=== PATIENT | female | born 1935 | race Caucasian/White ===

== ENCOUNTER 2016-08-16 15:24 | Emergency (ER) | payer MEDICARE, OTHER ==
[~2016-08-16 15:24] MED LIST: ACET500CAP PO; ALLEGRA180 PO; APRES10B PO; ASA5GR PO; ASAB PO; ASAEC PO; AVALIDE1 TA2 PO; BETAPACE80 PO; BUM5 PO; CARDIZEM LA360 MG PO; CARTIA XT180 MG/24 PO; CLOBETASOL0.051 EX; CRESTOR5 MG PO; DEXILANT PO; ELIQUIS 5 MG TAB5 MG PO; ESTRACE1 MG PO; ESTRODIAL PO; FAMVIR 500 MG500 MG PO; FERROUS SULF325 M1 PO; HCTZ25B PO; HYDROCHLOROT12.5 MG PO; L20 PO; LEVOTHYROXIN50 MCG PO; LEVOTHYROXIN75 MCG PO; MAXIMUM D3 PO; MCZ125 PO; METANX PO; MICRO-K10 MEQ PO; MULTIPLE VIT PO; MYLANTA PO; MYLUD PO; NEXIUM20 M1 PO; NEXIUM40 PO; P10 PO; P5 PO; PATANOL OPH; PLAVIX PO; PRADAXA150 MG PO; PRILO PO; PRIN5 PO; RANITIDINE300 MG PO; RYTHMOL150 MG PO; SINGULAIR1 PO; STOMACH PILL PO; T PO; TAMBO50 PO; TOPXL25 PO; TRIAMCINOLON0.12 EX; TRIAMCINOLONE C80 GM TOP; TRIAMCINOLONE454 GM TOP; TRILIPIX135 MG PO; ULTRAM50 PO; V5 PO; ZANAFLEX 4 MG TA4 MG PO; ZEGERID1 CA1 PO; [UNRECOGNIZED DRUG - OTHER] PO; [UNRECOGNIZED DRUG - REMARK]
[2016-08-16 16:00] LABS: BASOPHILS 0.3 %; BASOPHILS ABSOLUTE 0.03 10/3/uL (0.0-0.16); EOSINOPHILS 0.2 %; EOSINOPHILS ABSOLUTE 0.02 10/3/uL (0.0-0.53); ER CBC TAT 0 Hrs 13 Mins; HEMOGLOBIN 11.7 g/dL (12.0-16.0); IMMATURE GRANULOCYTES 0.4 %; IMMATURE GRANULOCYTES ABSOLUTE 0.04 10/3/uL (0.0-0.11); LYMPHOCYTES 16.8 %; LYMPHOCYTES ABSOLUTE 1.77 10/3/uL (0.67-4.30); MEAN CORPUS HGB CONC 32.5 g/dL (32.0-36.0); MEAN CORPUSCULAR HEMOGLOB 28.3 pg (26.0-34.0); MEAN PLATELET VOLUME 9.8 fL (9.2-13.0); MONOCYTES 8.8 %; MONOCYTES ABSOLUTE 0.93 10/3/uL (0.21-1.20); NEUTROPHILS 73.5 %; NEUTROPHILS ABSOLUTE 7.73 10/3/uL (2.02-8.40); PLATELET COUNT 234 10/3/uL (150-400); RBC DISTRIBUTION WIDTH 16.6 % (12.0-16.0); RED CELL COUNT 4.13 10/6/uL (4.0-5.6); WHITE BLOOD CELLS 10.5 10/3/uL (4.5-10.5)
[2016-08-16 16:01] LABS: MANUAL DIFF NO %; MEAN CORPUSCULAR VOLUME 87.2 fL (80-100)
[2016-08-16 16:04] LABS: INTERNATIONAL NORMAL RATI 1.3 UNITS (-); PARTIAL THROMBO TIME 31.9 SEC (22.5-37.2); PROTIME (NOT ORD) 16.3 SEC (12.0-14.5)
[2016-08-16 16:11] LABS: BUN (BLOOD UREA NITROGEN) 18 MG/DL (6-23); CALCIUM, SERUM 9.1 MG/DL (8.5-10.4); CHEST PAIN PROFILE TAT 0 Hrs 24 Mins; CHLORIDE, SERUM 100 MMOL/L (96-112); CO2 (CARBON DIOXIDE) 26 MMOL/L (24-34); CREATININE 1.01 MG/DL (0.55-1.02); GFR AFRICAN AMERICAN 61 ML/MIN (>=60); GFR NON AFRICAN AMERICAN 53 ML/MIN (>=60); GLUCOSE, SERUM 156 MG/DL (60-99); POTASSIUM, SERUM 4.3 MMOL/L (3.5-5.3); SODIUM, SERUM 138 MMOL/L (135-148); TROPONIN I <0.02 NG/ML (<0.05)
[2017-02-21] MEDS ORDERED: EFFEX75 PO (13:45)
[2017-02-21] MEDS ORDERED: SPIRO25 PO (13:46)
[2017-02-21] MEDS ORDERED: PROTONIX PO (13:48)
[2017-02-21] MEDS ORDERED: V5 PO (13:49)
[2017-02-21] MEDS ORDERED: L20 PO (13:50)
== END 2016-08-16 20:27 | disposition home or self-care (01) ==
LOC: ER 15:24
PROVIDERS: Emergency Medicine
DX: S92.352A Displaced fracture of fifth metatarsal bone, left foot, initial encounter for closed fracture (principal); Z88.5 Allergy status to narcotic agent; Z88.1 Allergy status to other antibiotic agents; Z88.8 Allergy status to other drugs, medicaments and biological substances; Z79.52 Long term (current) use of systemic steroids; Z79.82 Long term (current) use of aspirin; Z79.899 Other long term (current) drug therapy; W01.0XXA Fall on same level from slipping, tripping and stumbling without subsequent striking against object, initial encounter; Y92.009 Unspecified place in unspecified non-institutional (private) residence as the place of occurrence of the external cause
CPT/HCPCS: 70450; 71020; 72125; 73502-LT; 73590-LT; 73610-LT; 73630-LT; 80048; 83735; 84484; 85025; 85610; 85730; 93005; 99284; A9270-GY